=== PATIENT | male | born 1975 | race Caucasian/White ===

== ENCOUNTER → 2016-11-09 | Outpatient (CLI) | payer BC, OTHER ==
[~2016-11-09] MED LIST: ALEVE220 MG PO; ZANTAC 150MG T150 M1 PO
== END ==
LOC: LABMALL 11:14 → MRI 11:14
DX: M75.81 Other shoulder lesions, right shoulder (principal); M75.51 Bursitis of right shoulder; M25.511 Pain in right shoulder

== ENCOUNTER → 2020-04-02 | Outpatient (CLI) | payer BC, OTHER | LOC: CAT 11:24 | PROVIDERS: ATTEND Nurse Practitioner | DX: I63.9 Cerebral infarction, unspecified (principal); R53.83 Other fatigue ==